=== PATIENT | female | born 1985 | race Caucasian/White ===

== ENCOUNTER 2017-03-08 21:53 | Emergency (ER) | payer OTHER ==
[2017-03-08 21:58] VITALS: BMI 38.0
[2017-03-09] MEDS ORDERED: predniSONE 20 MG TABLET (UD) PO ONE (00:15)
[2017-03-09] MEDS ORDERED: CIPROFLOXACIN 0.3% EYE DROPS 5 ML BOTTLE OD ONE (00:16)
--- NOTE | 2017-03-09 00:22 | PDOC ---
History of Present Illness - General Chief Complaint: Eye Problem Stated Complaint: EYE PROBLEM Time Seen by Provider: 03/08/17 23:56 History Source: Patient Exam Limitations: No Limitations - History of Present Illness Initial Comments: 03/09/17 00:16 31yo Female patient w/ PmHx: Breast Ca (2yrs ago) w/ double masectomy and breast augmentation presents to ED c/o right eye infection. 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 Patient was diagnosed at [facility] and referred to Ophthalmology ( Jaycob Alonos MD. Patient was evaluated and prescribed Acyclovir 400mg 5x a day x 10 days. Patient presents to ED with worsening of right eye. She denies vision changes, double vision, fever, or any other complaints at this time. Patient uses contact lens but has not worn them since initial day of diagnosis. Timing/Duration: getting worse Severity: severe Modifying Factors: improves with: medication Associated Symptoms: denies: denies symptoms, chest pain, cough, diaphoresis, fever/chills, headaches, loss of appetite, malaise, nausea/vomiting, rash, seizure, shortness of breath, syncope, weakness, other Aspirin Received prior to arrival: No: no aspirin today, unknown, 81 mg x 1, 81 mg x 2, 81 mg x 3, 81 mg x 4, 325 mg x 1, provided at home, provided by EMS, provided by ED [facility] Contraindications(Core Measure): No: Allergy, Other, Active Blding w/i 24 hrs., Plavix, Receiving Warfarin Past History - Travel Traveled outside of the country in the last 30 days: No Close contact w/someone who was outside of country & ill: No - Past Medical History Allergies/Adverse Reactions: Allergies Allergy/AdvReac Type Severity Reaction Status Date / Time metoclopramide HCl Allergy Difficulty Verified 03/16/15 19:03 [From Reglan] Breathing Home Medications: Ambulatory Orders Acyclovir [Zovirax -] 400 mg PO BID 03/08/17 Methylprednisolone [Medrol Dose Clayton] 4 mg PO ASDIR #21 tablet 03/09/17 Asthma: Yes Cancer: Yes (breast) - Immunization History Immunization Up to Date: Yes - Suicide/Smoking/Psychosocial Hx Smoking History: Never smoked Have you smoked in the past 12 months: No Information on smoking cessation initiated: No Hx Alcohol Use: No Drug/Substance Use Hx: No Substance Use Type: None Review of Systems - Review of Systems Able to Perform ROS?: Yes Is the patient limited Belarusian proficient: No Constitutional: No: Chills, Fever HEENTM: Yes: Eye Pain. No: Blurred Vision, Double Vision, Ear Discharge, Nose Pain, Nose Congestion, Tinnitus, Nose Bleeding, Hearing Loss, Throat Pain, Throat Swelling, Mouth Pain, Dental Problems, Difficulty Swallowing, Mouth Swelling All Other Systems: Reviewed and Negative *Physical Exam - Vital Signs Last Vital Signs Temp Pulse Resp BP Pulse Ox 97.4 F L 90 18 139/91 99 03/08/17 21:56 03/08/17 21:56 03/08/17 21:56 03/08/17 21:56 03/08/17 21:56 - Physical Exam General Appearance: Yes: Nourished, Appropriately Dressed, Mild Distress. No: Apparent Distress, Moderate Distress, Severe Distress HEENT: positive: EOMI, RENETTA, Normal Voice, Symmetrical, TMs Normal, Pharynx Normal, Other (Right eye with injected sclera, active drainage of green mucus, moderate swelling to lower eye lid, no cells & flare noted, or lesion to eye lens or lesions to tip of nose.). negative: Normal ENT Inspection, Pharyngeal Erythema, Tonsillar Exudate, Tonsillar Erythema, Nasal Congestion, Rhinorrhea, Sinus Tenderness, TM Bulging, TM Dull, TM Erythema Neck: positive: Trachea midline, Normal Thyroid, Supple, Lymphadenopathy (R). negative: Tender, Rigid, Stridor, Lymphadenopathy (L), Tender lateral, Tender midline Respiratory/Chest: positive: Lungs Clear, Normal Breath Sounds. negative: Chest Tender, Respiratory Distress, Accessory Muscle Use, Labored Respiration, Rapid RR, Stridor, Wheezing Cardiovascular: positive: Regular Rhythm, Regular Rate Gastrointestinal/Abdominal: positive: Normal Bowel Sounds, Soft. negative: Distended, Guarding, Rebound, Tenderness Musculoskeletal: positive: Normal Inspection. negative: CVA Tenderness Extremity: positive: Normal Capillary Refill, Normal Inspection, Normal Range of Motion. 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 NML intact, Fully Oriented, Alert, Normal Mood/ Affect, Normal Response, Motor Strength 5/5 *DC/Admit/Observation/Transfer Diagnosis at time of Disposition: Herpes simplex type 1 infection Conjunctivitis Qualifiers: Conjunctivitis type: acute Acute conjunctivitis type: bacterial Laterality: right Qualified Code(s): H10.31 - Unspecified acute conjunctivitis, right eye; H10.31 - Unspecified acute conjunctivitis, right eye - Discharge Dispostion Disposition: HOME Condition at time of disposition: Stable Admit: No - Prescriptions Prescriptions: Methylprednisolone [Medrol Dose Clayton] 4 mg PO ASDIR #21 tablet - Referrals Referrals: Juan Griggs MD [Staff Physician] - - Patient Instructions Printed Discharge Instructions: Cold Sores, DI for Keratitis Additional Instructions: Follow up with Dr. Bhargav Griggs (Ophthalmology) within 48 hours. Call to schedule appointment. Continue taking your current medications as prescribed. Return if symptoms worsen or any concerns for further evaluation. Print Language: PALAUAN
--- NOTE | 2017-03-09 00:42 | PDOC ---
*DC/Admit/Observation/Transfer Diagnosis at time of Disposition: Herpes simplex type 1 infection Conjunctivitis Qualifiers: Conjunctivitis type: acute Acute conjunctivitis type: bacterial Laterality: right Qualified Code(s): H10.31 - Unspecified acute conjunctivitis, right eye - Prescriptions Prescriptions: Methylprednisolone [Medrol Dose Clayton] 4 mg PO ASDIR #21 tablet - Referrals Referrals: Juan Griggs MD [Staff Physician] - - Patient Instructions Printed Discharge Instructions: Cold Sores, DI for Keratitis Additional Instructions: Follow up with Dr. Bhargav Griggs (Ophthalmology) within 48 hours. Call to schedule appointment. Continue taking your current medications as prescribed. Return if symptoms worsen or any concerns for further evaluation. Administer eye drops as follows: 2 drops every 2 hours while awake x 2 days, then 1 drop every 4 hours while awake x 5 days. Print Language: ROMANIAN - Post Discharge Activity Forms/Work/School Notes: Back to Work
--- NOTE | 2017-03-09 00:46 | PDOC ---
*Physical Exam - Vital Signs Last Vital Signs Temp Pulse Resp BP Pulse Ox 97.4 F L 90 18 139/91 99 03/08/17 21:56 03/08/17 21:56 03/08/17 21:56 03/08/17 21:56 03/08/17 21:56 Medical Decision Making - Medical Decision Making 03/09/17 00:46 agree with care from PHYSICIAN ASSISTANT Alfredo *DC/Admit/Observation/Transfer Diagnosis at time of Disposition: Herpes simplex type 1 infection Conjunctivitis Qualifiers: Conjunctivitis type: acute Acute conjunctivitis type: bacterial Laterality: right Qualified Code(s): H10.31 - Unspecified acute conjunctivitis, right eye - Prescriptions Prescriptions: Methylprednisolone [Medrol Dose Clayton] 4 mg PO ASDIR #21 tablet - Referrals Referrals: Juan Griggs MD [Staff Physician] - - Patient Instructions Printed Discharge Instructions: Cold Sores, DI for Keratitis Additional Instructions: Follow up with Dr. Bhargav Griggs (Ophthalmology) within 48 hours. Call to schedule appointment. Continue taking your current medications as prescribed. Return if symptoms worsen or any concerns for further evaluation. Administer eye drops as follows: 2 drops every 2 hours while awake x 2 days, then 1 drop every 4 hours while awake x 5 days. Print Language: VIETNAMESE - Post Discharge Activity Forms/Work/School Notes: Back to Work
[2017-03-09] MEDS ORDERED: predniSONE 20 MG TABLET (UD) ONE (01:08)
[2017-03-09 01:34] VITALS: BP 139/75; PULSE 88; TEMP 98.2
== END 2017-03-09 01:34 | disposition home or self-care (01) ==
LOC: JER 21:53
DX: B00.59 Other herpesviral disease of eye (principal); H10.31 Unspecified acute conjunctivitis, right eye; Z85.3 Personal history of malignant neoplasm of breast; Z90.13 Acquired absence of bilateral breasts and nipples
CPT/HCPCS: 99281-25

== ENCOUNTER 2017-07-01 10:19 | Emergency (ER) | payer SELFPAY ==
[2017-07-01 10:42] VITALS: BP 124/74; PULSE 121; TEMP 99.8; BMI 37.0
[2017-07-01] MEDS ORDERED: IBUPROFEN 100 MG/5 ML UNIT DOSE CUPS PO ONE (11:52)
--- NOTE | 2017-07-01 11:56 | PDOC ---
History of Present Illness - General Chief Complaint: Cold Symptoms Stated Complaint: FLU LIKE SYMPTOMS Time Seen by Provider: 07/01/17 11:47 History Source: Patient Exam Limitations: No Limitations - History of Present Illness Initial Comments: 07/01/17 12:02 Onset of fevers, chills, cough nonproductive and sore throat pain.chills and body aches since yesterday. 07/01/17 12:04 Timing/Duration: reports: getting worse Severity: reports: mild, moderate Associated Symptoms: reports: chest pain/soreness, cough, fever/chills, headache , nasal congestion, sore throat Past History - Travel Traveled outside of the country in the last 30 days: No Close contact w/someone who was outside of country & ill: No - Past Medical History Allergies/Adverse Reactions: Allergies Allergy/AdvReac Type Severity Reaction Status Date / Time metoclopramide HCl Allergy Difficulty Verified 07/01/17 10:39 [From [facility]] Breathing Home Medications: Ambulatory Orders Oseltamivir Phosphate [Tamiflu -] 75 mg PO BID #10 capsule 07/01/17 Asthma: Yes Cancer: Yes (breast) COPD: No - Immunization History Immunization Up to Date: Yes - Suicide/Smoking/Psychosocial Hx Smoking History: Never smoked Have you smoked in the past 12 months: No Hx Alcohol Use: No Drug/Substance Use Hx: No Substance Use Type: None Review of Systems - Review of Systems Able to Perform ROS?: Yes Is the patient limited Guinean proficient: Yes Constitutional: Yes: Symptoms Reported, See HPI, Malaise HEENTM: Yes: Symptoms Reported, Nose Congestion, Throat Pain, Throat Swelling, Mouth Pain, Difficulty Swallowing Respiratory: Yes: See HPI, Cough ABD/GI: Yes: Symptoms Reported, See HPI, Nausea Musculoskeletal: Yes: Symptoms Reported, See HPI, Muscle Pain Neurological: Yes: Symptoms reported, See HPI, Headache All Other Systems: Reviewed and Negative *Physical Exam - Vital Signs Last Vital Signs Temp Pulse Resp BP Pulse Ox 99.8 F H 121 H 19 124/74 98 07/01/17 10:39 07/01/17 10:39 07/01/17 10:39 07/01/17 10:39 07/01/17 10:39 - Physical Exam General Appearance: Yes: Nourished, Appropriately Dressed HEENT: positive: RENETTA, TMs Normal (congested ), Muffled/Hoarse voice, Pharyngeal Erythema, Tonsillar Exudate, Tonsillar Erythema, Nasal Congestion, Rhinorrhea. negative: Normal ENT Inspection, Pharynx Normal Neck: positive: Supple, Lymphadenopathy (R), Lymphadenopathy (L) Respiratory/Chest: positive: Lungs Clear, Normal Breath Sounds Cardiovascular: positive: Regular Rhythm Gastrointestinal/Abdominal: positive: Normal Bowel Sounds, Soft. 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 And will treat with Tamiflu as patient is within window for probable influenza type upper respiratory infection. *DC/Admit/Observation/Transfer Diagnosis at time of Disposition: Strep sore throat, Influenzal acute upper respiratory infection - Discharge Dispostion Disposition: HOME Condition at time of disposition: Stable Admit: No - Referrals - Patient Instructions Printed Discharge Instructions: DI for Viral Upper Respiratory Infection -- Adult Additional Instructions: You have been treated with Bicillin LA 1.2 million units injection which is a one-time treatment for strep pharyngitis. Tylenol or Motrin for fever and pain Rest, drink lots of fluids: Teas, water, soups, Pedialyte Saltwater gargles Steamy showers/seem to face break up mucus Old-fashioned treatments help! Avoid contact with others until fevers and cough resolved as this is very contagious Lots of handwashing and good hygiene Continue [id number] medications for symptomatic relief Tylenol or Motrin for fever and pain Take all of Tamiflu as directed: 1 tab every 12 hours for 5 days Followup with private physician in one to 2 days as needed or if worsening Return to emergency department for worsened symptoms, fevers, dehydration Influenza takes between 5 and 7 days for resolution To not participate in any activity, work, or school until fevers and cough are gone for at least one day - Post Discharge Activity Forms/Work/School Notes: Back to Work
[2017-07-01] MEDS ORDERED: IBUPROFEN 100 MG/5 ML UNIT DOSE CUPS ONE (12:02)
[2017-07-01] MEDS ORDERED: PENICILLIN G BENZATHINE 1,200,000 UNIT/2 ML PFS IM ONE (12:41)
[2017-07-01] MEDS ORDERED: PENICILLIN G BENZATHINE 2,400,000 UNIT/4 ML PFS ONE (12:45)
== END 2017-07-01 13:09 | disposition home or self-care (01) ==
LOC: JERFT 10:19
DX: J02.0 Streptococcal pharyngitis (principal); B95.0 Streptococcus, group A, as the cause of diseases classified elsewhere; J11.1 Influenza due to unidentified influenza virus with other respiratory manifestations
CPT/HCPCS: 87070; 87430; 99281-25

== ENCOUNTER 2017-10-24 08:01 | Emergency (ER) | payer OTHER ==
[2017-10-24 08:17] VITALS: BP 137/88; PULSE 80; TEMP 97.8; BMI 37.0
[2017-10-24] MEDS ORDERED: IBUPROFEN 400 MG TABLET (FP) PO ONE (08:26)
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
== END 2017-10-24 08:40 | disposition home or self-care (01) ==
LOC: JERFT 08:01
DX: M62.830 Muscle spasm of back (principal); Z85.3 Personal history of malignant neoplasm of breast; J45.909 Unspecified asthma, uncomplicated; V43.52XA Car driver injured in collision with other type car in traffic accident, initial encounter; Y93.89 Activity, other specified; Y92.410 Unspecified street and highway as the place of occurrence of the external cause
CPT/HCPCS: 99281-25

== ENCOUNTER 2018-04-14 14:35 | Emergency (ER) | payer SELFPAY ==
[2018-04-14 14:49] VITALS: BMI 36.1
[2018-04-14] MEDS ORDERED: ALBUTEROL SO4 2.5/IPRATROPIUM 0.5 INH SOL 3 ML VIAL.NEB. NEB ONE ×6 (15:06→17:36)
--- NOTE | 2018-04-14 15:19 | PDOC ---
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 The patient endorses subjective fevers at home. Reports having a nebulizer at home but hasn' t had to use it in some time and did not use it prior to this presentation. Denies BROCK, vision changes, abdominal pain, N/V/C/D, dysuria, or hematuria 04/14/18 15:13 Past History - Past Medical History Allergies/Adverse Reactions: Allergies Allergy/AdvReac Type Severity Reaction Status Date / Time metoclopramide HCl Allergy Difficulty Verified 04/14/18 14:45 [From Reglan] Breathing Home Medications: Ambulatory Orders Albuterol 0.083% Nebulizer Gricelda [Ventolin 0.083% Nebulizer Soln -] 1 amp NEB QID PRN 30 Days #1 amp 04/14/18 Asthma: Yes Cancer: Yes (breast) COPD: No - Immunization History Immunization Up to Date: Yes - Suicide/Smoking/Psychosocial Hx Smoking History: Never smoked Have you smoked in the past 12 months: No Hx Alcohol Use: No Drug/Substance Use Hx: No Substance Use Type: None Review of Systems - Review of Systems Able to Perform ROS?: Yes Comments:: GENERAL/CONSTITUTIONAL: +subjective fever; denies chills. No weakness HEAD, EYES, EARS, NOSE AND THROAT: No change in vision. No ear pain or discharge. CARDIOVASCULAR: +chest tightness; denies shortness of breath RESPIRATORY: +cough; denies hemoptysis GASTROINTESTINAL: +NBNB vomiting x2; No diarrhea or constipation GENITOURINARY: No dysuria, frequency, or change in urination MUSCULOSKELETAL: No joint or muscle swelling or pain. No neck or back pain SKIN: No rash NEUROLOGIC: No headache, vertigo, loss of consciousness, or change in strength/ sensation ENDOCRINE: No increased thirst. No abnormal weight change HEMATOLOGIC/LYMPHATIC: No anemia, easy bleeding, or history of blood clots ALLERGIC/IMMUNOLOGIC: No hives or skin allergy 04/14/18 15:19 Is the patient limited Yakut proficient: No *Physical Exam - Vital Signs Last Vital Signs Temp Pulse Resp BP Pulse Ox 98.5 F 109 H 20 125/82 99 04/14/18 14:43 04/14/18 14:43 04/14/18 14:43 04/14/18 14:43 04/14/18 14:43 - Physical Exam Comments: GENERAL: Awake, alert, and fully oriented, in no acute distress HEAD: No signs of trauma, normocephalic, atraumatic EYES: PERRLA, EOMI, sclera anicteric, conjunctiva clear ENT: Hearing grossly normal, nares patent, oropharynx clear without exudates. Moist mucosa LUNGS: mild apical coarse breath sounds; No distress, speaks full sentences HEART: Regular rate and rhythm, normal S1 and S2, no murmurs appreciated, peripheral pulses normal and equal bilaterally ABDOMEN: Soft, nontender, normoactive bowel sounds. No guarding, no rebound EXTREMITIES : Normal inspection, Normal range of motion, no edema. No clubbing or cyanosis NEUROLOGICAL: Cranial nerves II through XII grossly intact. Normal speech, no focal sensorimotor deficits SKIN: Warm, Dry, normal turgor, no rashes or lesions noted 04/14/18 15:19 Moderate Sedation - Procedure Monitoring Vital Signs: Procedure Monitoring Vital Signs Temperature 98.5 F 04/14/18 14:43 Pulse Rate 109 H 04/14/18 14:43 Respiratory Rate 20 04/14/18 14:43 Blood Pressure 125/82 04/14/18 14:43 O2 Sat by Pulse Oximetry (%) 99 04/14/18 14:43 ED Treatment Course - LABORATORY CBC & Chemistry Diagram: 04/14/18 19:30 04/14/18 19:30 - RADIOLOGY Radiology Studies Ordered: Category Date Time Status CHEST X-RAY PORTABLE* [RAD] Stat Radiology 04/14/18 15:07 Ordered - Medications Given in the ED: ED Medications Discontinued Medications Generic Name Dose Route Start Last Admin Trade Name Freq PRN Reason Stop Dose Admin Albuterol/Ipratropium 1 amp 04/14/18 15:06 04/14/18 15:08 Duoneb - NEB 04/14/18 15:07 1 amp ONCE ONE Administration Medical Decision Making - Medical Decision Making The patient is a 32F with a history of asthma who presents for evaluation of 1d of cough and chest tightness ED Course CXR duo-neb 04/14/18 15:21 CXR pending Repeat duo-neb for persistent chest tightness. Patient reported initial symptomatic improvement after the first one 04/14/18 15:52 Influenza swab 04/14/18 15:59 CXR w/o focal consolidation, effusion, or PNX 04/14/18 16:10 Rapid Influenza neg 04/14/18 16:22 1L NS duo-neb Ofirmev 1g IV once Patient with sinus tach s/p neb x3 04/14/18 18:49 D-dimer neg No leukocytosis No anemia 04/14/18 20:07 Mild transaminitis -Advised to f/u PCP and discuss results and need for further work up Lytes wnl No LAURA Plan for D/C w/ PCP f/u Rx for inhaler Discharge instructions and return precautions given Patient in agreement and verbalized understanding of the plan Dispo: Home 04/14/18 20:14 *DC/Admit/Observation/Transfer Diagnosis at time of Disposition: Cough, Bronchospasm - Discharge Dispostion Disposition: HOME Condition at time of disposition: Stable Decision to Admit order: No - Referrals Referrals: [facility] [place] [Provider Group] - Patient Instructions Printed Discharge Instructions: DI for Acute Bronchitis Additional Instructions: You were seen in the Emergency Department today for evaluation of cough and chest tightness. Your X-ray was negative for pneumonia. Review the handout provided at discharge. A prescription for Robitussin was sent to your pharmacy. Take as directed. Follow up with the referral given. Return to the Emergency Department if you develop fevers/chills, chest pain, worsening symptom, or any new/concerning symptoms - Post Discharge Activity Forms/Work/School Notes: Back to Work
--- NOTE | 2018-04-14 16:19 | PDOC ---
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 +postussive emesis. She denies recent headache or dizziness. She denies recent diarrhea or constipation. She denies recent dysuria, frequency, urgency or hematuria. Allergies: Metoclopramide HCl Past surgical history:Bilateral mastectomy. 04/14/18 17:01 - Physicial Exam PE: 04/14/18 17:02 NAD, well appearing, MMM, nl conjunctiva, anicteric; +nasal congestion, neck supple. lungs clear, RRR, abdomen soft nontender. PETTIT x4, no focal neuro deficits. No peripheral edema. normal color for ethnicity, WWP. - Medical Decision Making 04/14/18 17:02 See HPI for details Vital signs reviewed, mild tachy noted, no fever. will repeat Vs well appearing, no respiratory distress flu neg CXR unchanged, no focal infiltrate Duonebs and respiratory sx control supportive care, hydration, avoid triggers DC in stable condition, return precautions discussed. 04/14/18 17:03 <Kathleen Perera - Last Filed: 04/14/18 17:03> Attestations - Attestations 04/14/18 16:49 Documentation prepared by Gayla Benoit, acting as medical genetics director for Kathleen Perera MD. <Gayla Benoit - Last Filed: 04/14/18 16:49>
[2018-04-14] MEDS ORDERED: ACETAMINOPHEN 325 MG TABLET (FP) PO ONE (17:17)
[2018-04-14] MEDS ORDERED: ACETAMINOPHEN INJECTION 100 ML IVPB ONE (17:17)
[2018-04-14] MEDS ORDERED: SODIUM CHLORIDE 0.9% 500 ML INFUS.BAG IV ONE (17:17)
[2018-04-14] MEDS ORDERED: ACETAMINOPHEN 1000 MG/100 ML VIAL (NON FORMULARY) IVPB ONE (17:25)
[2018-04-14 19:38] LABS: HEMATOCRIT 40.8 % (32.4-45.2); HEMOGLOBIN 14.2 GM/dL (10.7-15.3); MCH 28.5 pg (25.7-33.7); MCHC 34.8 g/dl (32.0-36.0); MEAN CELL VOLUME 81.8 fl (80-96); MEAN PLT VOLUME 8.5 fl (7.5-11.1); PLATELET COUNT 207 K/MM3 (134-434); RBC 4.99 M/mm3 (3.60-5.2); RDW 13.2 % (11.6-15.6); WHITE BLOOD COUNT 7.2 K/mm3 (4.0-10.0)
[2018-04-14 20:11] LABS: ALBUMIN 3.9 g/dl (3.4-5.0); ALK PHOS 118 U/L (45-117); ANION GAP 11 MMOL/L (8-16); BILIRUBIN,TOTAL 0.4 mg/dL (0.2-1); BLOOD UREA NITROGEN 10 mg/dL (7-18); CALCIUM 8.7 mg/dL (8.5-10.1); CHLORIDE 102 mmol/L (98-107); CO2 25 mmol/L (21-32); CREATININE 0.6 mg/dL (0.55-1.3); GLUCOSE,RANDOM 86 mg/dL (74-106); SGOT/AST 88 U/L (15-37); SGPT/ALT 117 U/L (13-61); SODIUM 138 mmol/L (136-145); TOT PROT 7.8 g/dl (6.4-8.2)
[2018-04-14 20:34] VITALS: BP 124/74; PULSE 115; TEMP 98.7
== END 2018-04-14 20:35 | disposition home or self-care (01) ==
LOC: JER 14:35
PROC: 3E0F7GC Introduction of Other Therapeutic Substance into Respiratory Tract, Via Natural or Artificial Opening (ICD-10-PCS; principal; 2018-04-14)
PROC: 3E0337Z Introduction of Electrolytic and Water Balance Substance into Peripheral Vein, Percutaneous Approach (ICD-10-PCS; 2018-04-14)
PROC: 3E033NZ Introduction of Analgesics, Hypnotics, Sedatives into Peripheral Vein, Percutaneous Approach (ICD-10-PCS; 2018-04-14)
DX: J98.01 Acute bronchospasm (principal); R05 Cough
CPT/HCPCS: 36415; 71045-TC-FY; 80053; 85027; 85379; 87804; 99283-25; J0131

== ENCOUNTER 2019-07-02 10:22 | Emergency (ER) | payer OTHER ==
[2019-07-02 10:42] VITALS: BP 126/81; PULSE 109; TEMP 98.8; BMI 34.7
--- NOTE | 2019-07-02 11:23 | PDOC ---
History of Present Illness - General Chief Complaint: Cold Symptoms Stated Complaint: Cold Symptoms Time Seen by Provider: 07/02/19 11:04 - History of Present Illness Initial Comments: 07/02/19 11:21 15-week gravid female presents for cough and stuffy nose without fever x3 days Past History - Past Medical History Allergies/Adverse Reactions: Allergies Allergy/AdvReac Type Severity Reaction Status Date / Time metoclopramide HCl Allergy Difficulty Verified 07/02/19 10:37 [From Reglan] Breathing Home Medications: Ambulatory Orders Albuterol 0.083% Nebulizer Gricelda [Ventolin 0.083% Nebulizer Soln -] 1 amp NEB QID PRN 30 Days #1 amp 04/14/18 Nebulizer and Compressor [Orient Choice Nebulizer] 1 each ASDIR #1 each 07/02 Sodium Chloride Inhalation [Normal Saline For Inhalation -] 3 ml ASDIR #60 vial.neb 07/02/19 Asthma: Yes Cancer: Yes (breast) COPD: No - Immunization History Immunization Up to Date: Yes - Psycho Social/Smoking Cessation Hx Smoking History: Never smoked Have you smoked in the past 12 months: No Information on smoking cessation initiated: No Hx Alcohol Use: No Drug/Substance Use Hx: No Substance Use Type: None Review of Systems - Review of Systems Constitutional: No: Fever HEENTM: Yes: Nose Congestion Respiratory: Yes: Cough *Physical Exam - Vital Signs Last Vital Signs Temp Pulse Resp BP Pulse Ox 98.8 F 109 H 20 126/81 97 07/02/19 10:38 07/02/19 10:38 07/02/19 10:38 07/02/19 10:38 07/02/19 10:38 - Physical Exam 07/02/19 11:21 GENERAL: The patient is awake, alert, and fully oriented, in no acute distress. HEAD: Normal with no signs of trauma. EYES: sclera anicteric, conjunctiva clear. ENT: Ears normal tympanic membranes normal oropharynx clear uvula midline NECK: Normal range of motion LUNGS: Breath sounds equal, clear to auscultation bilaterally. No wheezes, and no crackles. HEART: S1 and S2 without murmur, rub or gallop. ABDOMEN: Soft, nontender, normoactive bowel sounds. No guarding, no rebound. No masses. EXTREMITIES: Normal range of motion, no edema. No clubbing or cyanosis. No cords, erythema, or tenderness. NEUROLOGICAL: Cranial nerves II through XII grossly intact. PSYCH: Normal mood, normal affect. SKIN: Warm, Dry, normal turgor, no rashes or lesions noted. Medical Decision Making - Medical Decision Making 07/02/19 11:21 Supportive care for viral upper respiratory infection nebulizer with normal saline to help break up secretions and allow the patient to expectorate. Discharge - Discharge Information Problems reviewed: Yes Clinical Impression/Diagnosis: Cough, Viral illness, Viral URI with cough Condition: Stable Disposition: HOME - Admission No - Additional Discharge Information Prescriptions: Nebulizer and Compressor [Orient Choice Nebulizer] 1 each ASDIR #1 each Sodium Chloride Inhalation [Normal Saline For Inhalation -] 3 ml ASDIR #60 vial.neb - Follow up/Referral Referrals: Shira Virgen MD [Primary Care Provider] - - Patient Discharge Instructions Additional Instructions: Supportive care. Maintain hydration with Pedialyte. Tylenol and Motrin as directed for fever and body aches. Return to the emergency room for worsening symptoms. And without fail follow-up with your primary care physician in 1 to 2 days for further evaluation and treatment options. Please use the nebulizer with saline as directed to help decrease the cough. - Post Discharge Activity
== END 2019-07-02 11:23 | disposition home or self-care (01) ==
LOC: JERFT 10:22
DX: O26.892 Other specified pregnancy related conditions, second trimester (principal); Z3A.15 15 weeks gestation of pregnancy; B97.89 Other viral agents as the cause of diseases classified elsewhere; J06.9 Acute upper respiratory infection, unspecified; R05 Cough; Z85.3 Personal history of malignant neoplasm of breast; Z88.8 Allergy status to other drugs, medicaments and biological substances
CPT/HCPCS: 99283-25